=== PATIENT | female | born 1965 | race Caucasian/White ===

== ENCOUNTER 2019-01-16 17:07 | Emergency (ER) | payer OTHER ==
[2019-01-16 17:22] VITALS: BP 163/92; PULSE 100; TEMP 98.6; BMI 25.7
--- NOTE | 2019-01-16 17:22 | PDOC ---
Rapid Medical Evaluation Time Seen by Provider: 01/16/19 17:09 Medical Evaluation: Allergies Allergy/AdvReac Type Severity Reaction Status Date / Time No Known Allergies Allergy Verified 01/19/12 13:29 01/16/19 17:22 Patient c/o: left foot injury after coffee pot landed on it. Patient on brief exam: no visable injury, FROM noted, mild tenderness to base of 2,3,4 toes Patient ordered for: toe xray patient to proceed to the ED 01/16/19 17:25 Discharge Disposition - Diagnosis Foot injury - Referrals Referrals: Gwen Ramires MD [Primary Care Provider] - - Patient Instructions - Post Discharge Activity
[2019-01-16] MEDS ORDERED: IBUPROFEN 600 MG TABLET (FP) PO ONE ×2 (18:09→18:22)
--- NOTE | 2019-01-16 18:14 | PDOC ---
History of Present Illness - General Chief Complaint: Injury Stated Complaint: LEFT TOE/INJURY Time Seen by Provider: 01/16/19 17:09 History Source: Patient Exam Limitations: No Limitations - History of Present Illness Initial Comments: 01/16/19 18:14 HISTORY OF PRESENT ILLNESS: This is a 53-year-old woman denies medical history presents emergency department for evaluation of toe pain status post accidentally dropping a metal coffee carafe onto her foot 3 days ago. Patient reports she was cleaning a countertop and accidentally bumped the carafe off the counter hitting her in the toes. Patient was not wearing shoes at the time but has been ambulatory since the incident. Patient is in pain medication on the day of the incident but not since that time. No recent travel or sick contacts. PAST MEDICAL HISTORY: Denies past medical history SURGICAL HISTORY: Denies ALLERGIES: No known drug allergies REVIEW OF SYSTEMS General/Constitutional: Denies fever or chills. Denies weakness, weight change. HEENT: Denies change in vision. Denies ear pain or discharge. Denies sore throat. Cardiovascular: Denies chest pain or shortness of breath. Respiratory: Denies cough, wheezing, or hemoptysis. Gastrointestinal: Denies nausea, vomiting, diarrhea or constipation. Denies rectal bleeding. Genitourinary: Denies dysuria, frequency, or change in urination. Musculoskeletal: see HPI Skin and breasts: Denies rash or easy bruising. Neurologic: Denies headache, vertigo, loss of consciousness, or loss of sensation. Psychiatric: Denies depression or anxiety. Endocrine: Denies increased thirst. Denies abnormal weight change. Hematologic/Lymphatic: Denies anemia, easy bleeding, or history of blood clots. Allergic/Immunologic: Denies hives or skin allergy. Denies latex allergy. PHYSICAL EXAM General Appearance: Well-appearing, appropriately dressed. No apparent distress , no intoxication. Vascular Pulses: Dorsalis-Pedis (R): 2+, Dorsalis-Pedis (L): 2+ Musculoskeletal/Extremities: Left shot coat tender to palpation over the middle phalanx of the third and fourth toes. Ecchymosis present over the distal phalanx of third and fourth toes. Full range of motion noted. No crepitus, deformity or step-off is present upon palpation. Neurovascularly intact 01/17/19 11:13 Past History - Past Medical History Allergies/Adverse Reactions: Allergies Allergy/AdvReac Type Severity Reaction Status Date / Time No Known Allergies Allergy Verified 01/16/19 17:14 Home Medications: Ambulatory Orders No Home Medications 0 dose .ROUTE UTDICT 01/19/12 - Suicide/Smoking/Psychosocial Hx Smoking Status: No Smoking History: Never smoked Have you smoked in the past 12 months: No Number of Cigarettes Smoked Daily: 0 Hx Alcohol Use: No Drug/Substance Use Hx: No Substance Use Type: None *Physical Exam - Vital Signs Last Vital Signs Temp Pulse Resp BP Pulse Ox 98.6 F 100 H 18 163/92 01/16/19 17:10 01/16/19 17:10 01/16/19 17:10 01/16/19 17:10 Medical Decision Making - Medical Decision Making 01/16/19 18:16 A/P: 53-year-old female with pain to the third and fourth toes of the left foot status post direct trauma X-rays as read by me: No acute fractures or dislocations are present. Motrin 600 mg orally now Discharge the patient home with a hard sole shoe and podiatry follow-up. Portions of this note have been documented using voice recognition software. As a result, errors may occur in the medical transcription supervisor process. Effort has been made to correct all grammatical and medical transcription supervisor error, but some may have been missed in the editing process. *DC/Admit/Observation/Transfer Diagnosis at time of Disposition: Contusion, toes Qualifiers: Encounter type: initial encounter Toe: lesser toe Damage to nail status: without damage Laterality: left Qualified Code(s): S90.122A - Contusion of left lesser toe(s) without damage to nail, initial encounter - Discharge Dispostion Disposition: HOME Condition at time of disposition: Stable Decision to Admit order: No - Referrals Referrals: Gwen Ramires MD [Primary Care Provider] - Srinath Zimmer MD [Staff Physician] - - Patient Instructions Additional Instructions: Take Tylenol or Motrin as needed for pain. Follow manufacture's instructions for appropriate dosage. Wear hard soled shoe until pain is resolved. You have been given a referral to a net lead architect. Call to schedule an appointment for reevaluation if pain persists. Return to the emergency department for any new or worsening symptoms. Thank you very much for choosing us to provide your emergent health care needs. - Post Discharge Activity Forms/Work/School Notes: Back to Work
== END 2019-01-16 18:43 | disposition home or self-care (01) ==
LOC: JERFT 17:07
DX: S90.122A Contusion of left lesser toe(s) without damage to nail, initial encounter (principal); W20.8XXA Other cause of strike by thrown, projected or falling object, initial encounter; Y93.89 Activity, other specified; Y92.89 Other specified places as the place of occurrence of the external cause
CPT/HCPCS: 73660-TC-LT-FY; 99281-25